=== PATIENT | female | born 1960 | race Asian ===

== ENCOUNTER 2021-07-09 15:25 | Emergency (ER) | payer OTHER ==
[~2021-07-09] VITALS: Ht 172.7 cm; Wt 63.5 kg
[2021-07-09 15:25] VITALS: BP 160/90; TEMP 98
[2021-07-09 16:00] LABS: PLATELET COUNT 275 K/uL (152-353)
[2021-07-09 16:07] LABS: POTASSIUM 4.2 mmol/L (3.6-5.2)
[2021-07-09] MEDS ORDERED: OLAN2.5T2 PO (22:25)
[2021-07-09] MEDS ORDERED: VALPROIC A250 MG/5 M PO (22:28)
== END 2021-07-09 16:33 | disposition still patient (30) ==
LOC: ED 15:25
PROVIDERS: Hospitalist
DX: F20.89 Other schizophrenia (principal); Z72.811 Adult antisocial behavior; Z11.52 Encounter for screening for COVID-19; Z04.6 Encounter for general psychiatric examination, requested by authority
CPT/HCPCS: 80053; 81000; 85027; 87635; 93005; 99283; U0003

== ENCOUNTER 2021-09-03 13:05 | Emergency (ER) | payer OTHER ==
[~2021-09-03] VITALS: Ht 167.6 cm; Wt 60.8 kg
[2021-09-03 13:05] VITALS: BP 186/99; TEMP 98.6
[~2021-09-03 13:05] MED LIST: AMLODIPINE BESYLATE PO; LISI20TA11 PO; MAGNSUS68 PO; METF500T PO; OLAN2.5T2 PO; OLANZAPINE5 MG PO; VALPROIC A250 MG/5 M PO
[2021-09-03 13:24] LABS: PLATELET COUNT 333 K/uL (152-353)
[2021-09-03] MEDS ORDERED: VALP250S3 PO (14:38)
[2021-09-03] MEDS ORDERED: MAGNSUS68 PO (14:39)
== END 2021-09-03 13:54 | disposition still patient (30) ==
LOC: ED 13:05
PROVIDERS: Emergency Medicine
DX: R46.89 Other symptoms and signs involving appearance and behavior (principal); F20.89 Other schizophrenia; Z11.52 Encounter for screening for COVID-19; Z04.6 Encounter for general psychiatric examination, requested by authority
CPT/HCPCS: 80053; 81002; 85027; 87635; 93005; 99283; U0003